=== PATIENT | male | born 1985 | race Caucasian/White ===

== ENCOUNTER 2023-10-03 16:01 | Emergency (ER) | payer OTHER, SELFPAY ==
[2023-10-03 16:06] VITALS: BP 122/78; PULSE 69; TEMP 36.8; O2SAT 99; BMI 26.5
--- NOTE | 2023-10-03 16:15 | ED.GENADUL1 ---
HPI HPI - General Adult General Chief complaint: Animal Bite Stated complaint: Exposure to Raccoon Blood Time Seen by Provider: 10/03/23 16:05 Source: patient Mode of arrival: walk-in Limitations: no limitations History of Present Illness HPI narrative: Patient is a 38-year-old male who presents to the emergency department for evaluation of possible blood-borne exposure. Patient states he was breaking up a fight between a raccoon and his dog and got blood from the raccoon on his arms. He was not bitten, he has no areas of open wounds. He washed the blood off of his arms prior to arrival. He states his is and wanted him to be evaluated. They were concerned because he has an almost completely healed scabbed over area to the left hand. Related Data Home Medications ?Medication ?Instructions ?Recorded ?Confirmed No Known Home Medications 10/03/23 10/03/23 Allergies Allergy/AdvReac Type Severity Reaction Status Date / Time No Known Drug Allergies Allergy Verified 10/03/23 16:10 Opioid HPI Opioid Management Most Recent Opioid Data: No Data to Display Review of Systems ROS Constitutional Denies: fever or chills Ears, nose, mouth, and throat Denies: throat pain Cardiovascular Denies: chest pain Respiratory Denies: shortness of breath Gastrointestinal Denies: nausea or vomiting Integumentary/Breast Denies: rash Hematologic/Lymphatic Denies: easy bruising or easy bleeding Exam Narrative Exam Narrative: Gen.: Awake, alert, in no distress Head: Normocephalic, atraumatic ENT: Moist mucous membranes Respiratory: No respiratory distress Extremities: Moves extremities equally, no injuries noted Psych: Normal mood and affect Neuro: No focal neuro deficit Skin: Warm, dry, intact; Almost completely healed 3 mm area To the left dorsum of the hand with no open areas, bleeding or open wounds Constitutional Vital Signs, click to edit/add: Last Vital Signs Temp 98.2 F 10/03/23 16:06 Pulse 69 10/03/23 16:06 Resp 18 10/03/23 16:06 BP 122/78 10/03/23 16:06 Pulse Ox 99 10/03/23 16:06 O2 Del Method Room Air 10/03/23 16:06 Course Vital Signs Vital signs: Vital Signs Temperature 98.2 F 10/03/23 16:06 Pulse Rate 69 10/03/23 16:06 Respiratory Rate 18 10/03/23 16:06 Blood Pressure 122/78 10/03/23 16:06 Pulse Oximetry 99 10/03/23 16:06 Oxygen Delivery Method Room Air 10/03/23 16:06 Temperature 98.2 F 10/03/23 16:06 Pulse Rate 69 10/03/23 16:06 Respiratory Rate 18 10/03/23 16:06 Blood Pressure 122/78 10/03/23 16:06 Pulse Oximetry 99 10/03/23 16:06 Oxygen Delivery Method Room Air 10/03/23 16:06 Medical Decision Making MDM Narrative Medical decision making narrative: Patient was not bitten by a raccoon, no concern for rabies exposure at this time as he was only exposed to blood. Follow-up with PCP and return to the ER if symptoms change or worsen, patient given a referral for the health department. Medical Records Medical records reviewed: Yes I reviewed the patient's medical records Discharge Plan Discharge Stand Alone Forms: Portal Instructions Chief Complaint: Animal Bite Clinical Impression: Exposure to blood Patient Disposition: Home, Self-Care Time of Disposition Decision: 16:13 Condition: Good Prescriptions / Home Meds: No Action No Known Home Medications Print Language: Syriac Additional Instructions: [facility] [phone] Referrals: Physician,Non-Staff, MD [Primary Care Provider] - 1 week
== END 2023-10-03 16:21 | disposition home or self-care (01) ==
PROVIDERS: Emergency Provider Emergency Medicine Emergency Medical Services
DX: Z77.21 Contact with and (suspected) exposure to potentially hazardous body fluids (principal)
CPT/HCPCS: 99282